=== PATIENT | male | born 1980 | race Caucasian/White ===

== ENCOUNTER 2016-10-22 20:09 | Emergency (ER) | payer BC ==
--- NOTE | 2016-11-01 18:06 | ER ---
ADMIT: 10/22/2016 RM/LOC: ER [facility] MR#: [id number] [address] [id number] [facility] [address] [place] [address] Emergency Room Report SEX: M AGE: 36 : 1980 DATE: 10/22/2016 ADDENDUM: CHIEF COMPLAINT: Laceration to left eye. HISTORY OF PRESENT ILLNESS: This is a 36-year-old male, who was playing softball. He was hit in the eye with a ball anywhere from a 40 to 50-feet by a batter. He has no pain to palpation around the orbit of the eye. A suture repair was done. Please see T-sheet for that procedure note. There are no mental status changes, no vomiting, no headache. At this time, no CT is done. He is to return if he has any nausea or vomiting, headaches, or vision changes. CLINICAL IMPRESSION: Laceration to left eye. DISPOSITION: Stable at discharge, and we will follow up as needed. JOVAN Yates / Seymour Serrato MD / [email or web address] JOB #: [id number] CC: Seymour Serrato MD, Attending Physician Valeriano Toscano MD, Family Physician
== END 2016-10-22 21:15 | disposition home or self-care (01) ==
LOC: ER 20:09
DX: S01.112A Laceration without foreign body of left eyelid and periocular area, initial encounter (principal); W21.07XA Struck by softball, initial encounter